=== PATIENT | female | born 1960 | race Caucasian/White ===

== ENCOUNTER 2016-11-13 17:27 | Observation (INO) | payer BC, OTHER ==
--- NOTE | 2016-11-13 18:15 | ER Document Report ---
ED Medical Screen (RME) - General Stated Complaint: WEAKNESS Time seen by provider: 18:13 Mode of Arrival: Wheelchair Information source: Patient Notes: 55 yo female c/o sudden onset of right sided arm and leg weakness, had to be put into wheelchair, took 2 baby aspirin. Onset of sx at 4: 30 pm. c/o head feeling weird and back of neck hurting. TRAVEL OUTSIDE OF THE [place] IN LAST 30 DAYS: No - Related Data Allergies/Adverse Reactions: codeine [Codeine] Allergy (Verified 11/13/16 18:11) Past Medical History - Past Medical History Cardiac Medical History: Reports: Hx Hypercholesterolemia Endocrine Medical History: Reports: Hx Diabetes Mellitus Type 2 Past Surgical History: Reports: Hx Cholecystectomy, Hx Hysterectomy, Hx Orthopedic Surgery - back - Immunizations Hx Diphtheria, Pertussis, Tetanus Vaccination: Yes
[2016-11-13] MEDS ORDERED: ASPIRIN 81 MG TABLET, CHEWABLE PO ONE (19:49)
[2016-11-13 20:14] LABS: ABSOLUTE BASOPHILS # (AUTO) 0.1 10^3/uL (0.0-0.2); ABSOLUTE EOSINOPHILS # (AUTO) 0.2 10^3/uL (0.0-0.6); ABSOLUTE LYMPHOCYTES (AUTO) 1.5 10^3/uL (0.5-4.7); ABSOLUTE MONOCYTES (AUTO) 0.7 10^3/uL (0.1-1.4); ABSOLUTE NEUT (AUTO) 3.9 10^3/uL (1.7-8.2); BASOPHILS % (AUTO) 0.8 % (0-2); EOSINOPHILS % (AUTO) 3.7 % (0-6); HEMATOCRIT 40.5 % (36.0-47.0); HEMOGLOBIN 13.7 g/dL (12.0-15.5); HGB HCT DIFFERENCE 0.6; LYMPHOCYTES % (AUTO) 24.2 % (13-45); MEAN CORPUSCULAR HEMOGLOBIN 30.5 pg (27.0-33.4); MEAN CORPUSCULAR HGB CONC 33.7 g/dL (32.0-36.0); MEAN CORPUSCULAR VOLUME 91 fl (80-97); MONOCYTES % (AUTO) 10.6 % (3-13); RED BLOOD COUNT 4.48 10^6/uL (3.72-5.28); RED CELL DISTRIBUTION WIDTH 13.5 % (11.5-14.0); SEGMENTED NEUTROPHILS % (AUTO) 60.7 % (42-78); WHITE BLOOD COUNT 6.4 10^3/uL (4.0-10.5)
[2016-11-13 20:21] LABS: PROTHROMBIN TIME 12.2 SEC (11.4-15.4)
[2016-11-13 20:22] LABS: PARTIAL THROMBOPLASTIN TIME 27.2 SEC (23.5-35.8)
[2016-11-13 20:27] LABS: ALANINE AMINOTRANSFERASE 44 U/L (9-52); ALBUMIN 3.7 g/dL (3.5-5.0); ALKALINE PHOSPHATASE 118 U/L (38-126); ANION GAP 11 (5-19); ASPARTATE AMINO TRANSFERASE 29 U/L (14-36); BILIRUBIN,TOTAL 0.3 mg/dL (0.2-1.3); BLOOD UREA NITROGEN 19 mg/dL (7-20); CALCIUM 10.3 mg/dL (8.4-10.2); CARBON DIOXIDE 27 mmol/L (22-30); CHLORIDE 106 mmol/L (98-107); CREATINE KINASE 207 U/L (30-135); CREATININE RESULT 0.79 mg/dL (0.52-1.25); GLUCOSE 106 mg/dL (75-110); POTASSIUM 3.6 mmol/L (3.6-5.0); SODIUM 143.9 mmol/L (137-145); TOTAL PROTEIN 6.7 g/dL (6.3-8.2)
[2016-11-13 20:38] LABS: CREATINE KINASE MB 4.29 ng/mL (<4.55)
[2016-11-13 20:42] LABS: TROPONIN I < 0.012 ng/mL
--- NOTE | 2016-11-13 21:21 | ER Document Report ---
ED General - General Chief Complaint: Dizziness Stated Complaint: WEAKNESS Mode of Arrival: Wheelchair Information source: Patient, Relative Notes: 55-year-old female presents with sudden onset of headache right arm and leg weakness numbness and slurred speech. Patient notes she was slightly confused denies any other neurological deficits. Patient denies any previous similar episodes. This episode lasted 30 minutes and resolved on its own. Patient was given 2 baby aspirin by family member at home TRAVEL OUTSIDE OF THE [place] IN LAST 30 DAYS: No - HPI Onset: Just prior to arrival Onset/Duration: Sudden Quality of pain: Achy Severity: Moderate Pain Level: 1 Associated symptoms: Headache, Weakness Exacerbated by: Denies Relieved by: Denies Similar symptoms previously: No Recently seen / treated by doctor: No - Related Data Allergies/Adverse Reactions: codeine [Codeine] Allergy (Verified 11/13/16 18:14) Past Medical History - General Information source: Patient - Social History Smoking Status: Never Smoker Cigarette use (# per day): No Chew tobacco use (# tins/day): No Smoking Education Provided: No Frequency of alcohol use: None Drug Abuse: None Family History: Reviewed & Not Pertinent Patient has suicidal ideation: No Patient has homicidal ideation: No - Past Medical History Cardiac Medical History: Reports: Hx Hypercholesterolemia Endocrine Medical History: Reports: Hx Diabetes Mellitus Type 2 Past Surgical History: Reports: Hx Cholecystectomy, Hx Hysterectomy, Hx Orthopedic Surgery - back - Immunizations Hx Diphtheria, Pertussis, Tetanus Vaccination: Yes Review of Systems - Review of Systems Notes: REVIEW OF SYSTEMS: CONSTITUTIONAL : Denies fever, chills, or sweats. Denies recent illness. EENT: Denies eye, ear, throat, or mouth pain or symptoms. Denies nasal or sinus congestion or discharge. Denies throat, tongue, or mouth swelling or difficulty swallowing. CARDIOVASCULAR: Denies chest pain. Denies palpitations or racing or irregular heart beat. Denies ankle edema. RESPIRATORY: Denies cough, cold, or chest congestion. Denies shortness of breath, difficulty breathing, or wheezing. GASTROINTESTINAL: Denies abdominal pain or distention. Denies nausea, vomiting , or diarrhea. Denies blood in vomitus, stools, or per rectum. Denies black, tarry stools. Denies constipation. GENITOURINARY: Denies difficulty urinating, painful urination, burning, frequency, blood in urine, or discharge. FEMALE GENITOURINARY: Denies vaginal bleeding, heavy or abnormal periods, irregular periods. Denies vaginal discharge or odor. MUSCULOSKELETAL: Denies back or neck pain or stiffness. Denies joint pain or swelling. SKIN: Denies rash, lesions or sores. HEMATOLOGIC : Denies easy bruising or bleeding. LYMPHATIC: Denies swollen, enlarged glands. NEUROLOGICAL: Admits to headache and right-sided weakness slurred speech PSYCHIATRIC: Denies anxiety or stress. Denies depression, suicidal ideation, or homicidal ideation. ALL OTHER SYSTEMS REVIEWED AND NEGATIVE. Dictation was performed using [employer] voice recognition software PHYSICAL EXAMINATION: GENERAL: Well-appearing, well-nourished and in no acute distress. HEAD: Atraumatic, normocephalic. EYES: Pupils equal round and reactive to light, extraocular movements intact, conjunctiva are normal. ENT: Nares patent, oropharynx clear without exudates. Moist mucous membranes. NECK: Normal range of motion, supple without lymphadenopathy LUNGS: Breath sounds clear to auscultation bilaterally and equal. No wheezes rales or rhonchi. HEART: Regular rate and rhythm without murmurs ABDOMEN: Soft, nontender, nondistended abdomen. No guarding, no rebound. No masses appreciated. Female : deferred Musculoskeletal: Normal range of motion, no pitting or edema. No cyanosis. NEUROLOGICAL: Cranial nerves grossly intact. Normal speech, normal gait. Normal sensory, motor exams PSYCH: Normal mood, normal affect. SKIN: Warm, Dry, normal turgor, no rashes or lesions noted. Physical Exam - Vital signs Vitals: Temp Pulse Resp BP Pulse Ox 98.1 F 90 17 140/78 H 98 11/13/16 18:11 11/13/16 18:11 11/13/16 18:11 11/13/16 18:11 11/13/16 18:11 Course - Re-evaluation Re-evalutation: 11/13/16 21:32 Patient's NIH score currently is 0, she does not meet criteria for thrombolysis given that symptoms have resolved. I believe patient is having a TIA. CT imaging note no acute abnormality a left bundle branch block is noted on EKG - Vital Signs Vital signs: Temp Pulse Resp BP Pulse Ox 98.1 F 90 19 140/78 H 99 11/13/16 18:11 11/13/16 18:11 11/13/16 20:00 11/13/16 18:11 11/13/16 20:00 - Laboratory Result Diagrams: 11/13/16 20:00 11/13/16 20:00 Laboratory results interpreted by me: 11/13/16 20:00 Calcium 10.3 H Creatine Kinase 207 H - Diagnostic Test Radiology reviewed: Image reviewed, Reports reviewed - EKG Interpretation by Me EKG shows normal: Sinus rhythm, [place], Intervals, QRS Complexes [place]/QRS: LBBB Discharge - Discharge Clinical Impression: Right sided weakness, Slurred speech TIA (transient ischemic attack) Qualifiers: Transient cerebral ischemia type: unspecified Qualified Code(s): G45.9 - Transient cerebral ischemic attack, unspecified Disposition: ADMITTED INPATIENT Admitting Provider: Hospitalist Unit Admitted: Telemetry
[2016-11-13] MEDS ORDERED: LACTULOSE SYRUP 20 GM/30 ML UDCUP PO ONE (21:31)
[2016-11-13] MEDS ORDERED: ACETAMINOPHEN 325 MG TABLET PO PRN (21:35)
[2016-11-13] MEDS ORDERED: MAGNESIUM HYDROXIDE SUSP 30 ML UDCUP PO PRN (21:35)
[2016-11-13] MEDS ORDERED: ONDANSETRON HCL INJ/PF 4 MG/2 ML SDV IV PRN (21:35)
[2016-11-13] MEDS ORDERED: DOCUSATE SODIUM 100 MG CAPSULE PO PRN (21:35)
--- NOTE | 2016-11-13 21:38 | EKG REPORT ---
SEVERITY:- ABNORMAL ECG - SINUS RHYTHM LEFT BUNDLE BRANCH BLOCK : Confirmed by: Scott Duggan 13-Nov-2016 21:37:45
[2016-11-13] MEDS ORDERED: ATORVASTATIN CALCIUM 80 MG TABLET PO SCH (22:00)
[2016-11-13] MEDS: HEPARIN SOD (PORCINE) 5,000 UNIT/ML 1 ML SYRINGE SUBCUT SCH (22:25)
[2016-11-14] MEDS ORDERED: INFLUENZA ADLT QUAD (36MOS+) 2016-17 VAC 0.5 ML SYR IM PRN (01:37)
[2016-11-14] MEDS ORDERED: DEXTROSE 50%-WATER SYRINGE 25 GM/50 ML DOSE IV PRN (02:59)
[2016-11-14] MEDS ORDERED: DEXTROSE 40% GEL 15 GM TUBE PO PRN (02:59)
[2016-11-14] MEDS ORDERED: DEXTROSE 40% GEL 15 GM TUBE X 2 PO PRN (02:59)
[2016-11-14] MEDS ORDERED: INSULIN LISPRO 100 UNIT/ML 3 ML VIAL SUBCUT PRN ×2 (02:59→04:19)
[2016-11-14] MEDS ORDERED: GLUCAGON,HUMAN RECOMB 1 MG INJ IM PRN (02:59)
[2016-11-14] MEDS ORDERED: DEXTROSE 50%-WATER SYRINGE 12.5 GM/25 ML DOSE IV PRN (02:59)
--- NOTE | 2016-11-14 04:54 | PDOC H&P ---
History of Present Illness Admission Date/PCP: 11/13/16 21:35 Patient complains of: Dizziness numbness and weird feeling on the right side History of Present Illness: KENN ROBLES is a 55 year old female with a past medical history of diabetes , hypertension, GERD, osteoarthritis, obstructive sleep apnea, dyslipidemia and intermittent compliance. Who had been her usual state of health until a sudden onset of dizziness numbness and weird feeling to the right side of her body associated with weakness or incoordination, which was transitory lasting between 20 and 30 minutes, possibly associated with slurred but coherent speech patient denied confusion or palpitations or headache or hypoglycemia. Patient did not sustain fall was witnessed by several family members patient remains ambulatory no new medications but has had several major stressors including the of her [id number] and poor health of her . She is, currently at baseline Past Medical History Cardiac Medical History: Reports: Hyperlipidema Endocrine Medical History: Reports: Diabetes Mellitus Type 2, Other - Dyslipidemia Past Surgical History Past Surgical History: Reports: Cholecystectomy, Hysterectomy, Orthopedic Surgery - back Social History Information Source: Patient, Relative Lives with: Family Smoking Status: Never Smoker Frequency of Alcohol Use: None Hx Recreational Drug Use: No Drugs: None Hx Prescription Drug Abuse: No Family History Family History: CVA, Hypertension Parental Family History Reviewed: Yes Children Family History Reviewed: Yes Sibling(s) Family History Reviewed.: Yes Medication/Allergy Home Medications: Exenatide [Byetta] 10 mcg SQ BID 11/14/16 Furosemide [Lasix 40 mg Tablet] 40 mg PO QAM 11/14/16 Meloxicam [Mobic 15 mg Tablet] 15 mg PO DAILY 11/14/16 Pantoprazole Sodium 40 mg PO BID 11/14/16 Allergies/Adverse Reactions: codeine [Codeine] Allergy (Verified 11/13/16 18:14) Review of Systems Constitutional: ABSENT: chills, fever(s), headache(s), weight gain, weight loss Eyes: ABSENT: visual disturbances Ears: ABSENT: hearing changes Cardiovascular: ABSENT: chest pain, dyspnea on exertion, edema, orthropnea, palpitations Respiratory: ABSENT: cough, hemoptysis Gastrointestinal: ABSENT: abdominal pain, constipation, diarrhea, hematemesis, hematochezia, nausea, vomiting Genitourinary: ABSENT: dysuria, hematuria Musculoskeletal: ABSENT: joint swelling Integumentary: ABSENT: rash, wounds Neurological: ABSENT: abnormal gait, abnormal speech, confusion, dizziness, focal weakness, syncope Psychiatric: ABSENT: anxiety, depression, homidical ideation, suicidal ideation Endocrine: ABSENT: cold intolerance, heat intolerance, polydipsia, polyuria Hematologic/Lymphatic: ABSENT: easy bleeding, easy bruising Physical Exam Vital Signs: Temp Pulse Resp BP Pulse Ox 97.6 F 73 20 119/56 L 98 11/14/16 03:48 11/14/16 04:00 11/14/16 04:00 11/14/16 04:00 11/14/16 04:00 Intake & Output 11/12/16 11/13/16 11/14/16 11:59 11:59 11:59 Weight 86.4 kg General appearance: PRESENT: no acute distress, well-developed, well-nourished Head exam: PRESENT: atraumatic, normocephalic Eye exam: PRESENT: conjunctiva pink, EOMI, PERRLA. ABSENT: scleral icterus Ear exam: PRESENT: normal external ear exam Mouth exam: PRESENT: moist, tongue midline Neck exam: ABSENT: carotid bruit, JVD, lymphadenopathy, thyromegaly Respiratory exam: PRESENT: clear to auscultation wale. ABSENT: rales, rhonchi, wheezes Cardiovascular exam: PRESENT: RRR. ABSENT: diastolic murmur, rubs, systolic murmur Pulses: PRESENT: normal dorsalis pedis pul Vascular exam: PRESENT: normal capillary refill GI/Abdominal exam: PRESENT: normal bowel sounds, soft. ABSENT: distended, guarding, mass, organolmegaly, rebound, tenderness Rectal exam: PRESENT: deferred Extremities exam: PRESENT: full ROM. ABSENT: calf tenderness, clubbing, pedal edema Neurological exam: PRESENT: alert, awake, oriented to person, oriented to place , oriented to time, oriented to situation, CN II-XII grossly intact. ABSENT: motor sensory deficit Psychiatric exam: PRESENT: appropriate affect, normal mood. ABSENT: homicidal ideation, suicidal ideation Skin exam: PRESENT: dry, intact, warm. ABSENT: cyanosis, rash Results Impressions: Chest X-Ray 11/13/16 18:12 IMPRESSION: NO ACUTE RADIOGRAPHIC FINDING IN THE CHEST. Head CT 11/13/16 18:12 IMPRESSION: NORMAL BRAIN CT WITHOUT CONTRAST. Assessment & Plan - Diagnosis (1) TIA (transient ischemic attack) Qualifiers: Transient cerebral ischemia type: unspecified Qualified Code(s): G45.9 - Transient cerebral ischemic attack, unspecified Is this a current diagnosis for this admission?: YesPlan: Patient symptomology is vague and subjective it has several risk factors for CVA including diabetes hypertension dyslipidemia family history of CVA. There is an unremarkable thus far yet will be observed on a monitored bed for evaluation including carotid Doppler and MRI evaluation of TSH and A1c. (2) Adjustment disorder Is this a current diagnosis for this admission?: YesPlan: Strongly suggested by history including grief of loss of [id number] within the week and poor health and her spouse, strongly suggest trial of SSRI with primary care as the patient is reluctant to take medications the report of her primary care provider is essential (3) Right sided weakness Is this a current diagnosis for this admission?: YesPlan: Resolved please see #1 (4) Slurred speech Is this a current diagnosis for this admission?: YesPlan: Resolved please see #1 - Time Time Spent: 30 to 50 Minutes
[2016-11-14] MEDS: HEPARIN SOD (PORCINE) 5,000 UNIT/ML 1 ML SYRINGE SUBCUT SCH (05:32)
[2016-11-14 06:42] LABS: ABSOLUTE EOSINOPHILS # (AUTO) 0.4 10^3/uL (0.0-0.6); ABSOLUTE LYMPHOCYTES (AUTO) 1.9 10^3/uL (0.5-4.7); ABSOLUTE MONOCYTES (AUTO) 0.8 10^3/uL (0.1-1.4); ABSOLUTE NEUT (AUTO) 3.2 10^3/uL (1.7-8.2); BASOPHILS % (AUTO) 0.8 % (0-2); EOSINOPHILS % (AUTO) 5.7 % (0-6); HEMATOCRIT 39.8 % (36.0-47.0); HEMOGLOBIN 13.1 g/dL (12.0-15.5); HGB HCT DIFFERENCE -0.5; LYMPHOCYTES % (AUTO) 30.2 % (13-45); MEAN CORPUSCULAR HEMOGLOBIN 30.1 pg (27.0-33.4); MEAN CORPUSCULAR HGB CONC 32.9 g/dL (32.0-36.0); MEAN CORPUSCULAR VOLUME 91 fl (80-97); MONOCYTES % (AUTO) 12.5 % (3-13); RED BLOOD COUNT 4.35 10^6/uL (3.72-5.28); RED CELL DISTRIBUTION WIDTH 13.3 % (11.5-14.0); SEGMENTED NEUTROPHILS % (AUTO) 50.8 % (42-78); WHITE BLOOD COUNT 6.2 10^3/uL (4.0-10.5)
[2016-11-14 06:53] LABS: ANION GAP 9 (5-19); BLOOD UREA NITROGEN 15 mg/dL (7-20); CALCIUM 10.5 mg/dL (8.4-10.2); CARBON DIOXIDE 25 mmol/L (22-30); CHLORIDE 109 mmol/L (98-107); CREATININE RESULT 0.62 mg/dL (0.52-1.25); GLUCOSE 95 mg/dL (75-110); POTASSIUM 3.7 mmol/L (3.6-5.0); SODIUM 143.3 mmol/L (137-145)
[2016-11-14] MEDS ORDERED: ASPIRIN 325 MG TABLET, ENT COATED PO SCH (10:00)
[2016-11-14 13:28] VITALS: BP 134/73
--- NOTE | 2016-11-14 14:45 | PDOC DISCHARGE SUMMARY ---
General - Admit/Disc Date/PCP Admission Date/Primary Care Provider: 11/13/16 21:35 Discharge Date: 11/14/16 - Discharge Diagnosis (1) CVA (cerebral vascular accident) Is this a current diagnosis for this admission?: YesSummary: Acute CVA of the periventricular area on the left posterior limb (2) Diabetes mellitus Is this a current diagnosis for this admission?: Yes (3) Hyperlipidemia Is this a current diagnosis for this admission?: Yes - Additional Information Discharge Diet: Regular Discharge Activity: Activity As Tolerated, Balance Activity w/Rest Home Medications: Aspirin [Ecotrin 325 mg EC Tablet] 325 mg PO DAILY tabec 11/14/16 Exenatide [Byetta] 10 mcg SQ BID 11/14/16 Furosemide [Lasix 40 mg Tablet] 40 mg PO QAM 11/14/16 Meloxicam [Mobic 15 mg Tablet] 15 mg PO DAILY 11/14/16 Pantoprazole Sodium 40 mg PO BID 11/14/16 Rosuvastatin Calcium [Crestor 10 mg Tablet] 10 mg PO QHS 11/14/16 History of Present Illness History of Present Illness: KENN ROBLES is a 55 year old female who is ended with right arm weakness and some slurred speech. This improved after coming to the hospital. Patient took 2 aspirin prior to coming. Patient has a history of diabetes, hypertension and hyperlipidemia. Hospital Course Hospital Course: 55-year-old female who presented with right arm and leg weakness along with some slurred speech. Patient took 2 aspirin this resolved after approximately 30 minutes. The patient presented to emergency room and was admitted as a possible TIA. The patient had an MRI of the brain which shows a acute left periventricular CVA in the posterior limb. The patient has had complete resolution of her symptoms. Patient had carotid Doppler as part of the workup showed no significant stenosis. She did not have echocardiogram however she did not have any cardiac arrhythmias. Will defer to her primary care doctor to obtain echocardiogram to make certain she does not have any mural thrombus although she is not at risk as she has no history of cardiac arrhythmias. The patient was not taking aspirin on a daily basis prior to presentation and she is instructed to take an aspirin every day. The patient also has been noncompliant with her lipid-lowering medication because of side effects. She reports that the highest dose of lipid medication she can take his Crestor 10 mg daily which we will send her home with. The patient's other medical problems all were stable during this hospitalization. Physical Exam Vital Signs: Temp Pulse Resp BP Pulse Ox 97.7 F 79 18 134/73 H 96 11/14/16 13:24 11/14/16 13:24 11/14/16 13:24 11/14/16 13:24 11/14/16 13:24 Intake & Output 11/13/16 11/14/16 11/15/16 06:59 06:59 06:59 Intake Total 103 462 Balance 103 462 Weight 86.5 kg General appearance: PRESENT: no acute distress Eye exam: PRESENT: conjunctiva pink, EOMI, PERRLA. ABSENT: scleral icterus Ear exam: PRESENT: normal external ear exam Mouth exam: PRESENT: moist, tongue midline Neck exam: ABSENT: carotid bruit, JVD, lymphadenopathy, thyromegaly Respiratory exam: PRESENT: clear to auscultation wale. ABSENT: rales, rhonchi, wheezes Cardiovascular exam: PRESENT: RRR. ABSENT: diastolic murmur, rubs, systolic murmur Vascular exam: PRESENT: normal capillary refill GI/Abdominal exam: PRESENT: normal bowel sounds, soft. ABSENT: distended, guarding, mass, organolmegaly, rebound, tenderness Extremities exam: PRESENT: full ROM. ABSENT: calf tenderness, clubbing, pedal edema Neurological exam: PRESENT: alert, awake, oriented to person, oriented to place , oriented to time, oriented to situation, CN II-XII grossly intact. ABSENT: motor sensory deficit Skin exam: PRESENT: dry, intact, warm. ABSENT: cyanosis, rash Results Laboratory Results: 11/14/16 05:16 11/14/16 05:16 11/14/16 11/14/16 05:16 05:16 WBC 6.2 RBC 4.35 Hgb 13.1 Hct 39.8 MCV 91 MCH 30.1 MCHC 32.9 RDW 13.3 Plt Count 229 Seg Neutrophils % 50.8 Lymphocytes % 30.2 Monocytes % 12.5 Eosinophils % 5.7 Basophils % 0.8 Absolute Neutrophils 3.2 Absolute Lymphocytes 1.9 Absolute Monocytes 0.8 Absolute Eosinophils 0.4 Absolute Basophils 0.0 Sodium 143.3 Potassium 3.7 Chloride 109 H Carbon Dioxide 25 Anion Gap 9 BUN 15 Creatinine 0.62 Est GFR ( Amer) > 60 Est GFR (Non-Af Amer) > 60 Glucose 95 Calcium 10.5 H Impressions: Chest X-Ray 11/13/16 18:12 IMPRESSION: NO ACUTE RADIOGRAPHIC FINDING IN THE CHEST. Head CT 11/13/16 18:12 IMPRESSION: NORMAL BRAIN CT WITHOUT CONTRAST. Carotid Doppler Study 11/14/16 00:00 IMPRESSION: NO HEMODYNAMICALLY SIGNIFICANT STENOSIS. Head MRI 11/14/16 00:00 IMPRESSION: Tiny acute infarct or early subacute infarct in the left posterior deep periventricular white matter/posterior limb internal capsule. Findings discussed with Dr. Chapin. Qualifiers PATEINT BEING DISCHARGED WITH ANY OF THE FOLLOWING DIAGNOSIS?: Stroke Stroke Pt being discharged on Anti-thrombolytic therapy?: Yes Stroke Pt being discharged on Anti-coagulation therapy?: No Reason(s) for not prescribing Anti-coagulation therapy:: Procedure Contraindicated Stroke Pt being discharged on Statins?: Yes Plan Discharge Plan: Discharged to home. She will follow up with her primary care doctor in [place] and 1-2 weeks. Time Spent: Less than 30 Minutes
== END 2016-11-14 14:00 | disposition home or self-care (01) ==
LOC: ER 17:27 → EH 21:35 → INTOOBSV 21:39 → UNDOADMOB 21:39 → 3W 11-14 01:00
PROVIDERS: ADMIT Internal Medicine; ATTEND Internal Medicine
DX: I63.9 Cerebral infarction, unspecified (principal); E11.9 Type 2 diabetes mellitus without complications; E78.5 Hyperlipidemia, unspecified; Z79.82 Long term (current) use of aspirin; Z79.84 Long term (current) use of oral hypoglycemic drugs; I10 Essential (primary) hypertension; F43.20 Adjustment disorder, unspecified
CPT/HCPCS: 93005; 99285; 36415 ×2; 82553; 82962; 82550; 85025 ×2; 85610; 85730; 80048; 80053; 84484; 93880; 70553; 71010; 70450; 93010; G0378 ×2; A9577; J1644 ×2; J3490 ×2